=== PATIENT | male | born 1960 | race Two or more races ===

== ENCOUNTER 2022-04-05 20:32 | Inpatient (IN) | payer OTHER ==
[~2022-04-05] VITALS: Ht 175.3 cm; Wt 94.8 kg
--- NOTE | 2022-04-05 20:40 | NUR ---
R BKA, LEFT PARTIAL FOOT APUTATION NOTED.
--- NOTE | 2022-04-05 20:40 | NUR ---
DONNA FROM [facility] FOR SOB SINCE 199. PT A/OX4. TOLERATING O2 2LPM VIA N/C AT 98%. CONNECTED PT TO POX AND MONITOR. SAFETY MEASURES IN PLACE.
--- NOTE | 2022-04-05 21:04 | NUR ---
LAC #18G S/L BLOOD COLLECTED AND SENT TO LAB
[2022-04-05 21:13] LABS: BASOPHILS # (AUTO) 0.1 K/uL (0.0-0.2); BASOPHILS % (AUTO) 1.4 % (0.0-2.0); EOSINOPHILS % (AUTO) 4.7 % (0.0-6.0); HEMATOCRIT 31 % (39-51); HEMOGLOBIN 9.9 g/dL (13.5-17.5); LYMPHOCYTES # (AUTO) 0.7 K/uL (0.8-4.8); LYMPHOCYTES % (AUTO) 8.1 % (20.0-44.0); MEAN CORPUSCULAR HGB CONC 32 g/dl (31.0-36.0); MEAN CORPUSCULAR VOLUME 89 fL (80-96); MONOCYTES # (AUTO) 0.9 K/uL (0.1-1.30); NEUTROPHILS # (AUTO) 6.6 K/uL (1.8-8.9); NEUTROPHILS % (AUTO) 75.8 % (43.0-81.0); PLATELET COUNT (AUTO) 365 K/uL (150-450); RED BLOOD CELL COUNT(AUTO) 3.52 MIL/uL (4.5-6.0); WHITE BLOOD COUNT (AUTO) 8.6 K/uL (4.3-11.0)
[2022-04-05 21:32] LABS: CALCIUM, SERUM 7.8 mg/dL (8.5-10.1); CARBON DIOXIDE 23 mmol/L (21-32); CHLORIDE 104 mmol/L (98-107); GLUCOSE 116 mg/dL (74-106); POTASSIUM 5.5 mmol/L (3.5-5.1); SODIUM SERUM 140 mmol/L (136-145); UREA NITROGEN, BLOOD 69 mg/dL (7-18)
--- NOTE | 2022-04-05 21:32 | NUR ---
DR. LAW CORTEZ AT PT'S BEDSIDE FOR EVAL
[2022-04-05 21:37] LABS: CREATININE 14.1 mg/dL (0.6-1.3)
--- NOTE | 2022-04-05 21:37 | NUR ---
PENNY 14.1MD AWARE
[2022-04-05 21:39] LABS: ALANINE AMINOTRANSFERASE 20 U/L (12-78); ALBUMIN 3.4 g/dL (3.4-5.0); ALKALINE PHOSPHATASE 119 U/L (46-116); ASPARTATE AMINOTRANSFERASE 22 U/L (15-37); BILIRUBIN,DIRECT 0.2 mg/dL (0.0-0.2); BILIRUBIN,TOTAL 0.9 mg/dL (0.2-1.0); TOTAL PROTEIN, SERUM 7.4 g/dL (6.4-8.2)
[2022-04-05] MEDS ORDERED: LORAZEPAM INJ 2 MG/ML VIAL ONE (21:40)
--- NOTE | 2022-04-05 21:52 | NUR ---
COVID ANTIGEN SWAB COLLECTED AND SENT TO LAB
[2022-04-05] MEDS ORDERED: LORAZEPAM INJ 2 MG/ML VIAL IV ONE (22:00)
[2022-04-05] MEDS ORDERED: FUROSEMIDE 40 MG/4 ML VIAL IV ONE (22:00)
[2022-04-05] MEDS ORDERED: CALCIUM CHLORIDE 1,000 MG/10 ML DISP.SYRIN IV ONE (22:00)
--- NOTE | 2022-04-05 22:17 | NUR ---
KELTON CHAPARRO DNP AT PT'S BEDSIDE FOR VALERIEAL
[2022-04-05] MEDS ORDERED: ACETAMINOPHEN 325 MG TABLET PO PRN (22:30)
[2022-04-05] MEDS ORDERED: ONDANSETRON HCL/PF 4 MG/2 ML VIAL IVP PRN (22:30)
[2022-04-05] MEDS ORDERED: Z GUARD REMEDY 4 OZ OINT TP PRN (22:30)
[2022-04-05] MEDS ORDERED: MORPHINE SULFATE INJ 2 MG/ML DISP.SYRIN IV PRN (22:30)
[2022-04-05] MEDS ORDERED: MAG HYDROX/AL HYDROX/SIMETH 30 ML UDC PO PRN (22:30)
[2022-04-05] MEDS ORDERED: HYDROCODONE/APAP 5/325MG TABLET PO PRN (22:30)
[2022-04-05] MEDS ORDERED: MAGNESIUM HYDROXIDE 30 ML UDC PO PRN (22:30)
[2022-04-05] MEDS ORDERED: HYDR-4076 MT (22:45)
[2022-04-05] MEDS ORDERED: AMLO-213 MT (22:45)
[2022-04-05] MEDS ORDERED: CLON0.1T MT (22:45)
[2022-04-05] MEDS ORDERED: LABE200T5 MT (22:45)
[2022-04-05] MEDS ORDERED: DEXTROSE 50%-WATER 50 ML DISP.SYRIN IV PRN (23:00)
--- NOTE | 2022-04-06 | NUR ---
REPORT GIVEN TO KENDAL MONSON RN FOR JONATHON
--- NOTE | 2022-04-06 00:40 | NUR ---
PT TRANSFERRED TO [facility] VIA ACLS PROTOCOL. VSS. ALL BELONGINGS WITH PT.
--- NOTE | 2022-04-06 01:00 | NUR ---
PROJECTION CAMERA OPERATOR NOTE RECEIVED PT VIA GURNEY FROM ER WITH THE DX OF ARF, SECONDARY DX HYPERKALEMIA. PT WAS AWAKE, A/O X 4, ABLE TO VERBALIZE NEEDS. ON NC @ 4L, TOLERATING WELL. NO S/SX OF ACUTE RESPI DISTRESS NOTED. PT SHOWING SOB, BUT DENIES PAIN. IV ACCESS IN LAC #18G, PATENT, INTACT AND FLUSHES WELL, SL ONLY. PT HAS BLE AMPUTATION WITH R KNEE STUMP AND L FOOT STUMP PRESENT. SKIN INTACT EXCEPT FOR SOME SCRATCHES ON HIS R AND L LEG. PHOTOS TAKEN AND PLACED IN CHART. ALL SAFETY MEASURES IN PLACE: BED LOCKED IN LOW POSITION, BED ALARM ON. SR UP 2. CALL LIGHT WITHIN REACH. WILL CONTINUE TO MONITOR.
[2022-04-06 04:00] VITALS: BP 174/99
[2022-04-06] MEDS: hydrALAZINE HCL IV 20 MG VIAL IV PRN (06:20)
[2022-04-06] MEDS ORDERED: hydrALAZINE HCL IV 20 MG VIAL IV PRN (06:30)
--- NOTE | 2022-04-06 07:20 | NUR ---
rn telephone triage opening note PT AWAKE, A/O X 4, ABLE TO VERBALIZE NEEDS. ON NC @ 6L, TOLERATING WELL. NO S/SX OF ACUTE RESPI DISTRESS NOTED. PT SHOWING SOB, BUT DENIES PAIN/DISCOMFORT AT THIS TIME. IV ACCESS IN LAC #18G, PATENT, INTACT AND FLUSHES WELL, SL. PT HAS BLE AMPUTATION WITH R KNEE STUMP AND L FOOT STUMP PRESENTALL SAFETY MEASURES IN PLACE: BED LOCKED IN LOW POSITION, BED ALARM ON. SR UP 2. CALL LIGHT WITHIN REACH. EDUCATED PT TO USE CALL LIGHT WHEN NEEDS ANY ASSISTANCE.
[2022-04-06 07:27] LABS: BASOPHILS # (AUTO) 0.1 K/uL (0.0-0.2); BASOPHILS % (AUTO) 1.3 % (0.0-2.0); EOSINOPHILS % (AUTO) 7.6 % (0.0-6.0); HEMATOCRIT 30 % (39-51); HEMOGLOBIN 9.6 g/dL (13.5-17.5); LYMPHOCYTES # (AUTO) 0.8 K/uL (0.8-4.8); LYMPHOCYTES % (AUTO) 9.9 % (20.0-44.0); MEAN CORPUSCULAR HGB CONC 32 g/dl (31.0-36.0); MEAN CORPUSCULAR VOLUME 89 fL (80-96); MONOCYTES # (AUTO) 0.8 K/uL (0.1-1.30); NEUTROPHILS # (AUTO) 5.7 K/uL (1.8-8.9); NEUTROPHILS % (AUTO) 71.2 % (43.0-81.0); PLATELET COUNT (AUTO) 368 K/uL (150-450); RED BLOOD CELL COUNT(AUTO) 3.36 MIL/uL (4.5-6.0); WHITE BLOOD COUNT (AUTO) 7.9 K/uL (4.3-11.0)
[2022-04-06 07:29] LABS: MAGNESIUM 2.5 mg/dL (1.8-2.4); PHOSPHORUS 6.7 mg/dL (2.5-4.9)
[2022-04-06 07:32] LABS: CREATININE 14.4 mg/dL (0.6-1.3)
[2022-04-06] MEDS: BLOOD SUGAR DIAGNOSTIC 1 EACH STRIP IN SCH ×4 (07:44→22:22)
[2022-04-06] MEDS: PANTOPRAZOLE 40 MG TABLET.DR PO SCH (07:49)
[2022-04-06 08:00] VITALS: BP 159/82
[2022-04-06] MEDS: LABETALOL HCL (100MG) 100 MG TABLET PO SCH ×2 (08:58→22:01)
[2022-04-06] MEDS: AMLODIPINE BESYLATE 10 MG TABLET PO SCH (08:58)
[2022-04-06] MEDS ORDERED: FUROSEMIDE 40 MG/4 ML VIAL IV SCH (09:00)
[2022-04-06] MEDS: HEPARIN SODIUM, PORCINE 5000 UNITS/1 ML VIAL SQ SCH ×2 (09:36→22:08)
--- NOTE | 2022-04-06 10:00 | NUR ---
rn note pt asked to have wheelchair at bedside. notified pt eval. educated pt that PT has to see evaluate patient. educated him that hospital doesnt provide wheelchairs.
[2022-04-06] MEDS: hydrALAZINE HCL 25 MG TABLET PO SCH ×3 (10:04→17:21)
[2022-04-06 12:00] VITALS: BP 130/82
[2022-04-06] MEDS ORDERED: FUROSEMIDE 100 MG/10 ML VIAL IV ONE ×2 (14:00→19:30)
--- NOTE | 2022-04-06 14:24 | NUR ---
rn note received verbal order from Dr. Zamorano to give Lasix 100 mg now. orders noted and carried out
[2022-04-06 16:00] VITALS: BP 142/74
--- NOTE | 2022-04-06 19:52 | NUR ---
rn note notified dr. cuadra that Lasix 100 mgIV was given at 1400, and there is new order to give another 100 mg lasix to be given now. notified him for clarification. endorsed to cage shift manager rn
--- NOTE | 2022-04-06 19:56 | NUR ---
telephone lines repairer closing note PT AWAKE, A/O X 4, ABLE TO VERBALIZE NEEDS. ON simple face mask @ 6-8L, TOLERATING WELL. NO S/SX OF ACUTE RESPI DISTRESS NOTED. PT SHOWING SOB, BUT DENIES PAIN/DISCOMFORT AT THIS TIME. IV ACCESS IN LAC #18G, PATENT, INTACT AND FLUSHES WELL, SL. PT HAS BLE AMPUTATION WITH R KNEE STUMP AND L FOOT STUMP PRESENT. ALL SAFETY MEASURES IN PLACE: BED LOCKED IN LOW POSITION, BED ALARM ON. SR UP 2. CALL LIGHT WITHIN REACH. EDUCATED PT TO USE CALL LIGHT WHEN NEEDS ANY ASSISTANCE.
[2022-04-06 20:00] VITALS: BP 153/87
--- NOTE | 2022-04-06 20:00 | NUR ---
TD rn opening note PTS IN BED AWAKE, A/O X 4, ABLE TO VERBALIZE NEEDS. ON SIMPLE MASK @ 6L, TOLERATING WELL. NO S/SX OF ACUTE RESPI DISTRESS NOTED. DENIES PAIN/DISCOMFORT AT THIS TIME. IV ACCESS IN LEFT HAND #22G, PATENT, INTACT AND FLUSHES WELL, SL. PT HAS BLE AMPUTATION WITH R KNEE STUMP AND L FOOT STUMP DUE MEDS GIVEN ORDERED NO ASE NOTED,ALL SAFETY MEASURES IN PLACE: BED LOCKED IN LOW POSITION, BED ALARM ON. SR UP X2. CALL LIGHT WITHIN REACH. EDUCATED PT TO USE CALL LIGHT WHEN NEEDS ANY ASSISTANCE.
[2022-04-06] MEDS: INSULIN REGULAR, HUMAN 100 UNIT/ML 3 ML VIAL SQ PRN (22:26)
--- NOTE | 2022-04-06 22:27 | NUR ---
jalen rn notes Blood sugar at 10pm is 102mg/dl no insulin coverage given per sliding scale.
--- NOTE | 2022-04-06 23:13 | NUR ---
TD RN NOTES S/P IJ HD ACCESS INSERTED BY DIANE DUNNE NO BLEEDING NOTED ON THE SITE.WILL CONTINUE TO MONITOR.
[2022-04-07] VITALS: BP 148/93
--- NOTE | 2022-04-07 02:07 | NUR ---
TD RN NOTES HEMODIALYSIS DONE BY JAKY VAZQUEZ , X2 HOURS WITH OUTPUT OF 500CC .WELL TOLERATED BY PTS.
[2022-04-07 04:00] VITALS: BP_SYST 159; BP_SYST 162; BP_DIAS 83
--- NOTE | 2022-04-07 05:44 | NUR ---
TD RN NOTES PTS REMAINS IN bed awake a/ox4 remain on monitor sr , no sob no distress noted no complain of pain , on l eft hand G22 and right ij hd access intact and patent ,will endorsed to rn day shift for continuity of care.
[2022-04-07 07:29] LABS: BASOPHILS # (AUTO) 0.1 K/uL (0.0-0.2); BASOPHILS % (AUTO) 1.5 % (0.0-2.0); EOSINOPHILS % (AUTO) 11.6 % (0.0-6.0); HEMATOCRIT 30 % (39-51); LYMPHOCYTES # (AUTO) 0.7 K/uL (0.8-4.8); LYMPHOCYTES % (AUTO) 10.5 % (20.0-44.0); MEAN CORPUSCULAR HGB CONC 33 g/dl (31.0-36.0); MEAN CORPUSCULAR VOLUME 89 fL (80-96); MONOCYTES # (AUTO) 0.9 K/uL (0.1-1.30); MONOCYTES % (AUTO) 12.5 % (2.0-12.0); NEUTROPHILS # (AUTO) 4.4 K/uL (1.8-8.9); NEUTROPHILS % (AUTO) 63.9 % (43.0-81.0); PLATELET COUNT (AUTO) 300 K/uL (150-450); WHITE BLOOD COUNT (AUTO) 6.9 K/uL (4.3-11.0)
[2022-04-07 08:00] VITALS: BP 161/81
[2022-04-07 08:20] LABS: CALCIUM, SERUM 7.6 mg/dL (8.5-10.1); POTASSIUM 4.4 mmol/L (3.5-5.1)
[2022-04-07 08:26] LABS: CREATININE 12.2 mg/dL (0.6-1.3)
[2022-04-07] MEDS: BLOOD SUGAR DIAGNOSTIC 1 EACH STRIP IN SCH ×4 (08:34→21:39)
[2022-04-07] MEDS: FUROSEMIDE 100 MG/10 ML VIAL IV SCH ×2 (08:41→19:59)
[2022-04-07] MEDS: HEPARIN SODIUM, PORCINE 5000 UNITS/1 ML VIAL SQ SCH ×2 (08:42→21:39)
[2022-04-07] MEDS: LABETALOL HCL (100MG) 100 MG TABLET PO SCH ×2 (08:42→21:38)
[2022-04-07] MEDS: CALCIUM ACETATE 667 MG CAP/TAB PO SCH ×3 (08:42→19:59)
[2022-04-07] MEDS: hydrALAZINE HCL 25 MG TABLET PO SCH ×3 (08:43→19:59)
[2022-04-07] MEDS: PANTOPRAZOLE 40 MG TABLET.DR PO SCH (08:43)
[2022-04-07] MEDS: AMLODIPINE BESYLATE 10 MG TABLET PO SCH (08:43)
[2022-04-07] MEDS: INSULIN REGULAR, HUMAN 100 UNIT/ML 3 ML VIAL SQ PRN ×2 (09:10→12:53)
[2022-04-07 12:00] VITALS: BP 158/97
--- NOTE | 2022-04-07 15:15 | NUR ---
RN NOTE DIALYSIS WILL BEGIN AT THIS TIME.
[2022-04-07 16:00] VITALS: BP 142/88
--- NOTE | 2022-04-07 17:54 | NUR ---
RN NOTE DIALYSIS REMOVED 1.5L TODAY.
--- NOTE | 2022-04-07 18:33 | NUR ---
RN NOTE NOTIFIED NURSING AUTOMOTIVE FUEL INJECTION SERVICER THAT PATIENT REQUESTED TO CHANGE ROOMS, HE REQUESTED MORE PRIVACY. MOVED PATIENT TO ROOM 104. DIALYSIS NURSE NOTIFIED PRIMARY NURSE THAT, ROOM 104, DOES NOT HAVE DIALYSIS ACCESS TO PERFORM DIALYSIS, PATIENT WAS MOVED BACK TO ROOM 113-1. NOTIFIED DR BRENDAN MD AWARE. CHARGE NURSE AWARE.
[2022-04-07 20:00] VITALS: BP 169/94
--- NOTE | 2022-04-07 20:21 | NUR ---
BIOMEDICAL TECHNICIAN CLOSING NOTE PT AWAKE, A/O X 4, ABLE TO VERBALIZE NEEDS. BREATHING ON 6L NC, TOLERATING WELL. NO S/SX OF ACUTE RESPI DISTRESS NOTED. IV ACCESS IN BISMARK MIDLINE #18G, PATENT, INTACT AND FLUSHES WELL, SL. PT HAS BLE AMPUTATION WITH R KNEE STUMP AND L FOOT STUMP PRESENT. ALL SAFETY MEASURES IN PLACE: BED LOCKED IN LOW POSITION, BED ALARM ON. SR UP 2. CALL LIGHT WITHIN REACH. EDUCATED PT TO USE CALL LIGHT WHEN NEEDS ANY ASSISTANCE. WILL ENDORSE CONTINUITY OF CARE TO CLINICAL TRIALS ASSISTANT.
[2022-04-08] VITALS: BP 174/84
[2022-04-08] MEDS: hydrALAZINE HCL IV 20 MG VIAL IV PRN (02:06)
[2022-04-08 04:00] VITALS: BP 115/75
[2022-04-08 06:43] LABS: BASOPHILS # (AUTO) 0.1 K/uL (0.0-0.2); BASOPHILS % (AUTO) 1.3 % (0.0-2.0); EOSINOPHILS % (AUTO) 10.8 % (0.0-6.0); HEMATOCRIT 30 % (39-51); HEMOGLOBIN 9.7 g/dL (13.5-17.5); LYMPHOCYTES # (AUTO) 0.6 K/uL (0.8-4.8); LYMPHOCYTES % (AUTO) 9.7 % (20.0-44.0); MEAN CORPUSCULAR HGB CONC 32 g/dl (31.0-36.0); MEAN CORPUSCULAR VOLUME 88 fL (80-96); MONOCYTES # (AUTO) 0.7 K/uL (0.1-1.30); MONOCYTES % (AUTO) 10.2 % (2.0-12.0); NEUTROPHILS # (AUTO) 4.5 K/uL (1.8-8.9); PLATELET COUNT (AUTO) 259 K/uL (150-450); WHITE BLOOD COUNT (AUTO) 6.6 K/uL (4.3-11.0)
[2022-04-08 07:30] LABS: CALCIUM, SERUM 7.8 mg/dL (8.5-10.1); MAGNESIUM 2.3 mg/dL (1.8-2.4); PHOSPHORUS 5.5 mg/dL (2.5-4.9); POTASSIUM 4.1 mmol/L (3.5-5.1)
[2022-04-08 07:36] LABS: CREATININE 10.9 mg/dL (0.6-1.3)
[2022-04-08 08:00] VITALS: BP 154/82
[2022-04-08] MEDS: BLOOD SUGAR DIAGNOSTIC 1 EACH STRIP IN SCH ×4 (09:16→21:25)
[2022-04-08] MEDS: CALCIUM ACETATE 667 MG CAP/TAB PO SCH ×3 (09:26→17:17)
[2022-04-08] MEDS: PANTOPRAZOLE 40 MG TABLET.DR PO SCH (09:26)
[2022-04-08] MEDS: AMLODIPINE BESYLATE 10 MG TABLET PO SCH (09:27)
[2022-04-08] MEDS: hydrALAZINE HCL 25 MG TABLET PO SCH ×3 (09:27→17:17)
[2022-04-08] MEDS: FUROSEMIDE 100 MG/10 ML VIAL IV SCH ×2 (09:27→17:17)
[2022-04-08] MEDS: LABETALOL HCL (100MG) 100 MG TABLET PO SCH ×2 (09:28→21:15)
[2022-04-08] MEDS: HEPARIN SODIUM, PORCINE 5000 UNITS/1 ML VIAL SQ SCH ×2 (09:30→21:16)
[2022-04-08 12:00] VITALS: BP 137/83
--- NOTE | 2022-04-08 15:23 | NUR ---
RN NOTE HEMODIALYSIS WILL BEGIN AT THIS TIME.
[2022-04-08 16:00] VITALS: BP 159/98
--- NOTE | 2022-04-08 19:12 | NUR ---
FLORAL CLERK CLOSING NOTE HEMODIALYSIS PERFORMED TODAY, REMOVED 1L. PT AWAKE, A/O X 4, ABLE TO VERBALIZE NEEDS. BREATHING ON 6L NC, TOLERATING WELL. NO S/SX OF ACUTE RESPI DISTRESS NOTED. IV ACCESS IN BISMARK MIDLINE #18G, PATENT, INTACT AND FLUSHES WELL, SL. PT HAS BLE AMPUTATION WITH R KNEE STUMP AND L FOOT STUMP PRESENT. ALL SAFETY MEASURES IN PLACE: BED LOCKED IN LOW POSITION, BED ALARM ON. SR UP 2. CALL LIGHT WITHIN REACH. EDUCATED PT TO USE CALL LIGHT WHEN NEEDS ANY ASSISTANCE. WILL ENDORSE CONTINUITY OF CARE TO BIOINFORMATICIAN.
--- NOTE | 2022-04-08 19:18 | NUR ---
RN NOTE RECEIVED PT FOR CONTINUITY OF CARE. PATIENT ON HIS WHEELCHAIR, A/OX4 IN NO S/SX OF ACUTE DISTRESS AT THIS TIME; CURRENTLY ON 6L OF 02 VIA NC; WITH 02 SAT 95% AT THIS TIME. WITH IV ACCESS R UA MIDLINE PATENT, INTACT AND FLUSHING WELL. WILL ENSURE SAFETY MEASURES WITHIN THE SHIFT. PATIENT BED ALARM IS ON. HEAD OF BED ELEVATED. BED IS LOCKED, IN LOWEST POSITION AND SIDE RAILS UP. CALL LIGHT WITHIN REACH OF THE PATIENT. WILL CONTINUE TO MONITOR AND REASSESS FOR ANY CHANGES AND WILL CARRY OUT ANY ONGOING AND ACTIVE MD ORDER.
[2022-04-08 20:00] VITALS: BP 96/46
--- NOTE | 2022-04-08 21:26 | NUR ---
RN NOTE PT REFUSED ACCU CHECK, EXPLAINED RISK AND BENEFITS BUT PERSISTENTLY REFUSING. RN ACKNOWLEDGED. HOUSEKEEPING ASSISTANT MADE AWARE.
[2022-04-09] VITALS: BP 126/68
[2022-04-09 04:00] VITALS: BP 124/55
--- NOTE | 2022-04-09 04:00 | NUR ---
RN NOTE PATIENT REMAINED TO BE IN NO SIGNS OF ACUTE RESPIRATORY DISTRESS ,SAFE ENVIRONMENT MAINTAINED FOR PT. WILL CONTINUE TO MONITOR AND REASSESS FOR ANY CHANGES THROUGHOUT THE SHIFT.
--- NOTE | 2022-04-09 06:43 | NUR ---
RN CLOSING NOTE PATIENT REMAINS IN ROOM IN NO SIGNS OF RESPIRATORY DISTRESS, PATIENT NOW ON 4L OF 02 VIA NC; TOLERATING WELL SATURATING @ >95% SP02. SAFETY MEASURES IMPLEMENTED, BED IN LOWEST POSITION, LOCKED, SIDE RAILS UP, CALL LIGHT WITHIN REACH. ALL NEEDS AND ORDERS ADDRESSED DURING THE SHIFT. IV ACCESS MAINTAINED INTACT, SECURED AND FLUSHING WELL. ALL DUE MEDS GIVEN ORDERED & SCHEDULED ; PATIENT TOLERATED WELL. PATIENT KEPT CLEAN AND COMFORTABLE WITHIN THE SHIFT. PATIENT ENDORSED TO INCOMING SHIFT RN WITH STABLE VITAL SIGN AND FOR CONTINUITY OF CARE.
--- NOTE | 2022-04-09 07:10 | NUR ---
RAW SAMPLER OPENING NOTES Received pt awake and in his wheelchair AOx4. No complaints of pain or discomfort at this time. Pt is currently on 4L NC and tolerating it well. IV access on BIMSARK midline patent and intact, RIJ PermCath for HD access. Call light within reach. Will continue to monitor.
[2022-04-09] MEDS: BLOOD SUGAR DIAGNOSTIC 1 EACH STRIP IN SCH (07:30)
[2022-04-09 07:42] LABS: BASOPHILS # (AUTO) 0.1 K/uL (0.0-0.2); BASOPHILS % (AUTO) 1.5 % (0.0-2.0); EOSINOPHILS % (AUTO) 10.4 % (0.0-6.0); HEMATOCRIT 32 % (39-51); HEMOGLOBIN 10.4 g/dL (13.5-17.5); LYMPHOCYTES # (AUTO) 0.6 K/uL (0.8-4.8); LYMPHOCYTES % (AUTO) 9.8 % (20.0-44.0); MEAN CORPUSCULAR HGB CONC 32 g/dl (31.0-36.0); MEAN CORPUSCULAR VOLUME 87 fL (80-96); MONOCYTES # (AUTO) 0.6 K/uL (0.1-1.30); MONOCYTES % (AUTO) 9.8 % (2.0-12.0); NEUTROPHILS # (AUTO) 4.3 K/uL (1.8-8.9); NEUTROPHILS % (AUTO) 68.5 % (43.0-81.0); PLATELET COUNT (AUTO) 244 K/uL (150-450); RED BLOOD CELL COUNT(AUTO) 3.68 MIL/uL (4.5-6.0); WHITE BLOOD COUNT (AUTO) 6.3 K/uL (4.3-11.0)
--- NOTE | 2022-04-09 07:44 | NUR ---
BUSINESS INTELLIGENCE MANAGER NOTES Pt refused to get his blood sugar checked. Offered 3x but pt still refused. Explained risks and benefits. Pt stated "I'm not diabetic. Tell the doctor I don't need to get my blood sugar checked."
[2022-04-09 08:00] VITALS: BP 159/98
[2022-04-09 08:09] LABS: POTASSIUM 4.1 mmol/L (3.5-5.1)
[2022-04-09 08:17] LABS: CREATININE 10.3 mg/dL (0.6-1.3)
[2022-04-09] MEDS: AMLODIPINE BESYLATE 10 MG TABLET PO SCH ×2 (08:58→09:00)
[2022-04-09] MEDS: CALCIUM ACETATE 667 MG CAP/TAB PO SCH ×3 (08:58→17:44)
[2022-04-09] MEDS: PANTOPRAZOLE 40 MG TABLET.DR PO SCH (08:58)
[2022-04-09] MEDS: hydrALAZINE HCL 25 MG TABLET PO SCH ×3 (08:59→17:44)
[2022-04-09] MEDS: LABETALOL HCL (100MG) 100 MG TABLET PO SCH ×3 (08:59→21:04)
[2022-04-09 09:02] LABS: ABG BASE EXCESS -1.4 mmol/L; ABG OXYGEN SATURATION 96.2 % (92.0-98.5); ABG PCO2 34.4 mmHg (35.0-45.0); ABG PH 7.431 (7.350-7.450); ABG PO2 81.4 mmHg (75.0-100.0); AaDO2 27.1 mmHg; COHb 0.6 % (0.5-1.5); MetHb 0.2 % (0.0-1.5); O2Hb 95.4 % (94.0-97.0); SITE, ABG Left Brachial; VENT MODE, BG ROOM AIR
[2022-04-09] MEDS: HEPARIN SODIUM, PORCINE 5000 UNITS/1 ML VIAL SQ SCH ×2 (09:05→21:06)
[2022-04-09] MEDS: FUROSEMIDE 100 MG/10 ML VIAL IV SCH ×2 (09:12→17:45)
[2022-04-09 12:00] VITALS: BP 166/96
[2022-04-09 16:00] VITALS: BP 169/92
--- NOTE | 2022-04-09 17:52 | NUR ---
HEAD GREENSKEEPER NOTES Pt completed HD and tolerated it well. 2L of fluid removed.
--- NOTE | 2022-04-09 18:37 | NUR ---
MINER CLOSING NOTES All due meds and tx given as ordered. Pt tolerated everything well. All needs attended to. Pt is currently on 4L NC and tolerating it well with 02 saturatoin at 96%. IV access on BISMARK midline patent and intact. RIJ permacath kept clean and dry. Pt is on his wheelchair. Call light within reach. Will endorse to oncoming nurse.
--- NOTE | 2022-04-09 19:10 | NUR ---
RN NOTE RECEIVED PT FOR CONTINUITY OF CARE. PATIENT ON HIS WHEELCHAIR, A/OX4 IN NO S/SX OF ACUTE DISTRESS AT THIS TIME; CURRENTLY ON 4L OF 02 VIA NC; WITH 02 SAT 95% AT THIS TIME. WITH IV ACCESS R UA MIDLINE PATENT, INTACT AND FLUSHING WELL. WILL ENSURE SAFETY MEASURES WITHIN THE SHIFT. PATIENT BED ALARM IS ON. HEAD OF BED ELEVATED. BED IS LOCKED, IN LOWEST POSITION AND SIDE RAILS UP. CALL LIGHT WITHIN REACH OF THE PATIENT. WILL CONTINUE TO MONITOR AND REASSESS FOR ANY CHANGES AND WILL CARRY OUT ANY ONGOING AND ACTIVE MD ORDER.
[2022-04-09 20:00] VITALS: BP 148/90
[2022-04-10 04:00] VITALS: BP 135/72
--- NOTE | 2022-04-10 06:39 | NUR ---
RN CLOSING NOTE PATIENT REMAINS IN ROOM IN NO SIGNS OF RESPIRATORY DISTRESS, PATIENT NOW ON 2L OF 02 VIA NC; TOLERATING WELL SATURATING @ >95% SP02. SAFETY MEASURES IMPLEMENTED, BED IN LOWEST POSITION, LOCKED, SIDE RAILS UP, CALL LIGHT WITHIN REACH. ALL NEEDS AND ORDERS ADDRESSED DURING THE SHIFT. IV ACCESS MAINTAINED INTACT, SECURED AND FLUSHING WELL. ALL DUE MEDS GIVEN ORDERED & SCHEDULED ; PATIENT TOLERATED WELL. PATIENT KEPT CLEAN AND COMFORTABLE WITHIN THE SHIFT. PATIENT ENDORSED TO INCOMING SHIFT RN WITH STABLE VITAL SIGN AND FOR CONTINUITY OF CARE.
[2022-04-10 06:55] LABS: BASOPHILS # (AUTO) 0.1 K/uL (0.0-0.2); BASOPHILS % (AUTO) 1.5 % (0.0-2.0); EOSINOPHILS % (AUTO) 12.2 % (0.0-6.0); HEMATOCRIT 31 % (39-51); LYMPHOCYTES # (AUTO) 0.6 K/uL (0.8-4.8); LYMPHOCYTES % (AUTO) 9.1 % (20.0-44.0); MEAN CORPUSCULAR HGB CONC 33 g/dl (31.0-36.0); MEAN CORPUSCULAR VOLUME 87 fL (80-96); MONOCYTES # (AUTO) 0.8 K/uL (0.1-1.30); MONOCYTES % (AUTO) 11.9 % (2.0-12.0); NEUTROPHILS # (AUTO) 4.3 K/uL (1.8-8.9); NEUTROPHILS % (AUTO) 65.3 % (43.0-81.0); PLATELET COUNT (AUTO) 180 K/uL (150-450); RED BLOOD CELL COUNT(AUTO) 3.52 MIL/uL (4.5-6.0); WHITE BLOOD COUNT (AUTO) 6.6 K/uL (4.3-11.0)
--- NOTE | 2022-04-10 07:09 | NUR ---
AGRICULTURAL SYSTEMS SPECIALIST OPENING NOTES Received pt sleep in bed AOx4. No signs of pain or discomfort at this time. Pt is currently on 4L NC and tolerating it well. IV access on BISMARK midline patent and intact, RIJ PermCath for HD access. HOB elevated to 30-45 degrees. Bed at its lowest setting and locked. Call light within reach. Will continue to monitor.
[2022-04-10 07:11] LABS: CALCIUM, SERUM 8.1 mg/dL (8.5-10.1); POTASSIUM 4.1 mmol/L (3.5-5.1)
[2022-04-10 08:00] VITALS: BP 146/52
[2022-04-10] MEDS: PANTOPRAZOLE 40 MG TABLET.DR PO SCH (08:05)
[2022-04-10] MEDS: CALCIUM ACETATE 667 MG CAP/TAB PO SCH ×3 (08:05→17:01)
[2022-04-10] MEDS: AMLODIPINE BESYLATE 10 MG TABLET PO SCH (09:10)
[2022-04-10] MEDS: hydrALAZINE HCL 25 MG TABLET PO SCH ×3 (09:10→17:02)
[2022-04-10] MEDS: LABETALOL HCL (100MG) 100 MG TABLET PO SCH ×2 (09:11→21:00)
[2022-04-10] MEDS: HEPARIN SODIUM, PORCINE 5000 UNITS/1 ML VIAL SQ SCH ×3 (09:14→23:50)
[2022-04-10] MEDS: FUROSEMIDE 100 MG/10 ML VIAL IV SCH ×2 (09:18→16:57)
[2022-04-10 12:00] VITALS: BP 153/84
[2022-04-10] MEDS: IPRATROPIUM NEB FS 0.5 MG/2.5 ML AMPUL.NEB NEB PRN (14:33)
[2022-04-10 16:00] VITALS: BP 144/72
--- NOTE | 2022-04-10 18:35 | NUR ---
LAST DIPPER CLOSING NOTES All due meds and tx given as ordered. Pt tolerated everything well. All needs attended to. Pt is currently on 4L NC and tolerating it well. IV access on BISMARK midline patent and intact. Call light within reach. Will endorse to oncoming nurse.
[2022-04-10 20:00] VITALS: BP 165/90
[2022-04-10 22:00] VITALS: BP 140/70
[2022-04-11 04:00] VITALS: BP 105/52
--- NOTE | 2022-04-11 06:30 | NUR ---
Client slept off and on thru out night . Denies H/A ,dizziness and blurred vision. Denies pain at this time. offered no complaints. made comfortable.Advised client to make nurse aware if any untoward manifestations occurs. Client voiced understanding of same. will cont to monitor for safety.
[2022-04-11 07:57] LABS: BASOPHILS # (AUTO) 0.1 K/uL (0.0-0.2); BASOPHILS % (AUTO) 1.4 % (0.0-2.0); HEMATOCRIT 32 % (39-51); LYMPHOCYTES # (AUTO) 0.8 K/uL (0.8-4.8); MEAN CORPUSCULAR HGB CONC 32 g/dl (31.0-36.0); MEAN CORPUSCULAR VOLUME 89 fL (80-96); MONOCYTES # (AUTO) 0.8 K/uL (0.1-1.30); MONOCYTES % (AUTO) 12.6 % (2.0-12.0); PLATELET COUNT (AUTO) 150 K/uL (150-450); RED BLOOD CELL COUNT(AUTO) 3.55 MIL/uL (4.5-6.0); WHITE BLOOD COUNT (AUTO) 6.4 K/uL (4.3-11.0)
--- NOTE | 2022-04-11 07:57 | NUR ---
RN OPENING NOTE PATIENT REMAINS IN ROOM. PT ALERT AND ORIENTED X 4. VERBALLY RESPONSIVE AND ABLE TO MAKE NEEDS KNOWN. NO SIGNS OF PAIN OF DISCOMFORT AT THIS TIME. ON 2L OF VIA NC; TOLERATING WELL SATURATING @ >95% SP02. ALL SAFETY MEASURES IMPLEMENTED, BED IN LOWEST POSITION, LOCKED, SIDE RAILS UP, CALL LIGHT WITHIN REACH. IV ACCESS MAINTAINED INTACT, SECURED AND FLUSHING WELL.
[2022-04-11 07:59] LABS: CALCIUM, SERUM 7.8 mg/dL (8.5-10.1); CREATININE 7.3 mg/dL (0.6-1.3); MAGNESIUM 2.1 mg/dL (1.8-2.4); PHOSPHORUS 3.8 mg/dL (2.5-4.9); POTASSIUM 3.9 mmol/L (3.5-5.1)
[2022-04-11 08:00] VITALS: BP 151/83
[2022-04-11] MEDS: FUROSEMIDE 100 MG/10 ML VIAL IV SCH ×2 (08:36→16:28)
[2022-04-11] MEDS: PANTOPRAZOLE 40 MG TABLET.DR PO SCH (08:36)
[2022-04-11] MEDS: CALCIUM ACETATE 667 MG CAP/TAB PO SCH ×3 (08:36→17:17)
[2022-04-11] MEDS: hydrALAZINE HCL 25 MG TABLET PO SCH ×3 (08:36→16:29)
[2022-04-11] MEDS: LABETALOL HCL (100MG) 100 MG TABLET PO SCH ×2 (08:38→21:34)
[2022-04-11] MEDS: AMLODIPINE BESYLATE 10 MG TABLET PO SCH (08:38)
--- NOTE | 2022-04-11 08:39 | NUR ---
rn note notified instruction librarian troy that platelets is 150 and platelets trending down and if okay to give heparin. said ok to give. pt no signs of bleeding
--- NOTE | 2022-04-11 08:39 | NUR ---
rn note pt scheduled for dialysis. held 0900 blood pressure medications
[2022-04-11] MEDS: HEPARIN SODIUM, PORCINE 5000 UNITS/1 ML VIAL SQ SCH ×2 (08:43→21:30)
--- NOTE | 2022-04-11 13:36 | NUR ---
rn note platelet refused 1200 vital signs. hydrazaline held due to pt getting dialysis now
[2022-04-11 16:00] VITALS: BP 158/84
[2022-04-11] MEDS: IPRATROPIUM NEB FS 0.5 MG/2.5 ML AMPUL.NEB NEB PRN (16:35)
--- NOTE | 2022-04-11 17:09 | NUR ---
rn note pt had dialysis today. removed 2L.pt tolerating well
--- NOTE | 2022-04-11 19:28 | NUR ---
RN CLOSING NOTE PATIENT REMAINS IN ROOM. PT ALERT AND ORIENTED X 4. PT SITTING IN WHEELCHAIR AT THIS TIME. VERBALLY RESPONSIVE AND ABLE TO MAKE NEEDS KNOWN. PT HAS RIGHT UPPER ARM MIDLINE. IV INTACT, PATENT AND FLUSHING WELL WITH COVERED CAPS. ALL NEEDS ATTENDED. FREQUENT ROUNDS MADE. PROVIDED HYDRATION AND OFFERED SNACKS THROUGHOUT SHIFT. STAFF FROM [employer] CAME TO SPEAK WITH PT TO PROVIDE OPTIONS FOR ADDITIONAL MEALS. PT AGREED FOR CERTAIN FOOD OPTIONS. NO SIGNS OF PAIN OF DISCOMFORT AT THIS TIME. PT USES 2L OF NC;ROOM AIR AND ALTERNATES WITH SIMPLE FACE MASK, 02 AT 100% ALL SAFETY MEASURES IMPLEMENTED, BED IN LOWEST POSITION, LOCKED, SIDE RAILS U X2, CALL LIGHT WITHIN REACH. BED ALARM ON. PT USES WHEELCHAIR TO GET AROUND AND TO USE BATHROOM. ENDORSED TO STOPER RN FOR CONTUITY OF CARE
--- NOTE | 2022-04-11 19:30 | NUR ---
RN OPENING NOTE RECEIVED PT IN HIS WHEELCHAIR, SITTING COMFORTABLY, A/O X 4; ABLE TO VERBALIZE NEEDS. NO S/SX OF ACUTE RESPI DISTRESS NOTED AT THIS TIME. NO SOB; NO PAIN. CURRENTLY ON 2L OF 02 VIA NC; TOLERATING WELL SATURATING @ >95%. SR ON TITLE INSURANCE SALES REPRESENTATIVE, HR 80s. IV ACCESS ON BISMARK ML, SL. PATENT, INTACT AND FLUSHES WELL. R IJ HD CATH NOTED. ALL SAFETY MEASURES IN PLACE: BED IN LOWEST POSITION, LOCKED, SIDE RAILS UP, CALL LIGHT WITHIN REACH. WILL CONTINUE TO MONITOR.
[2022-04-11 20:00] VITALS: BP 160/108
[2022-04-12] VITALS: BP 149/88
[2022-04-12 04:00] VITALS: BP 148/88
[2022-04-12] MEDS: hydrALAZINE HCL IV 20 MG VIAL IV PRN (06:03)
--- NOTE | 2022-04-12 06:23 | NUR ---
RN NOTE NO SIGNIFICANT CHANGE T/O THE NIGHT. BP IS ELEVATED, SBP >160. HYDRALAZINE IV GIVEN ORDERED. ALL DUE MEDS GIVEN. NEEDS MET. TURNED AND REPOSITIONED. WILL ENDORSE TO AM SHIFT NURSE FOR JONATHON.
--- NOTE | 2022-04-12 07:10 | NUR ---
INFORMATION SYSTEMS PLANNER OPENING NOTES Received pt sleep in bed AOx4. No signs of pain or discomfort at this time. Pt is currently on 4L NC and tolerating it well. IV access on BISMARK midline patent and intact, RIJ PermCath for HD access. HOB elevated to 30-45 degrees. Bed at its lowest setting and locked. Call light within reach. Will continue to monitor.
[2022-04-12 07:27] LABS: BASOPHILS # (AUTO) 0.2 K/uL (0.0-0.2); BASOPHILS % (AUTO) 2.4 % (0.0-2.0); EOSINOPHILS % (AUTO) 12.1 % (0.0-6.0); HEMATOCRIT 30 % (39-51); HEMOGLOBIN 9.7 g/dL (13.5-17.5); LYMPHOCYTES % (AUTO) 13.6 % (20.0-44.0); MEAN CORPUSCULAR HGB CONC 32 g/dl (31.0-36.0); MEAN CORPUSCULAR VOLUME 87 fL (80-96); MONOCYTES # (AUTO) 0.9 K/uL (0.1-1.30); MONOCYTES % (AUTO) 12.3 % (2.0-12.0); NEUTROPHILS # (AUTO) 4.2 K/uL (1.8-8.9); NEUTROPHILS % (AUTO) 59.6 % (43.0-81.0); PLATELET COUNT (AUTO) 144 K/uL (150-450); RED BLOOD CELL COUNT(AUTO) 3.45 MIL/uL (4.5-6.0)
[2022-04-12 08:00] VITALS: BP 178/88
[2022-04-12 08:11] LABS: CALCIUM, SERUM 8.1 mg/dL (8.5-10.1); CREATININE 7.1 mg/dL (0.6-1.3); POTASSIUM 3.8 mmol/L (3.5-5.1)
[2022-04-12] MEDS: CALCIUM ACETATE 667 MG CAP/TAB PO SCH ×3 (08:19→17:05)
[2022-04-12] MEDS: PANTOPRAZOLE 40 MG TABLET.DR PO SCH (08:19)
[2022-04-12] MEDS: LABETALOL HCL (100MG) 100 MG TABLET PO SCH ×2 (08:20→20:54)
[2022-04-12] MEDS: hydrALAZINE HCL 25 MG TABLET PO SCH ×3 (08:20→17:06)
[2022-04-12] MEDS: AMLODIPINE BESYLATE 10 MG TABLET PO SCH (08:20)
[2022-04-12] MEDS: HEPARIN SODIUM, PORCINE 5000 UNITS/1 ML VIAL SQ SCH ×2 (08:22→20:54)
[2022-04-12] MEDS: FUROSEMIDE 100 MG/10 ML VIAL IV SCH ×2 (08:24→17:04)
--- NOTE | 2022-04-12 10:21 | NUR ---
follow up with dr. khalif french placement ,per pt. refusing it.
[2022-04-12 12:00] VITALS: BP 141/81
--- NOTE | 2022-04-12 13:07 | NUR ---
CONSUMER AFFAIRS SPECIALIST NOTES Pt request information on his BUN and creatinine. A copy of his lab results were given to him.
[2022-04-12 16:00] VITALS: BP 166/81
--- NOTE | 2022-04-12 16:30 | NUR ---
CRM FUNCTIONAL ANALYST NOTES Pt completed HD and tolerated it well. 2L of fluid taken out.
--- NOTE | 2022-04-12 18:30 | NUR ---
SPECIALIZED DEVELOPER CLOSING NOTES All due meds and tx given as ordered. Pt tolerated everything well. All needs attended to. Pt is currently on RA and tolerating it well. IV access on BISMARK midline patent and intact. HOB elevated to pts comfort. Siderails up at all times x2. Bed at its lowest setting. Call light within reach. Will endorse to oncoming nurse.
--- NOTE | 2022-04-12 19:30 | NUR ---
RN OPENING NOTE RECEIVED PT IN BED, ASLEEP. PT KNOWN TO BE A/O X 4; ABLE TO VERBALIZE NEEDS. NO S/SX OF ACUTE RESPI DISTRESS NOTED AT THIS TIME. NO SOB; NO PAIN. CURRENTLY ON RA; TOLERATING WELL, SATURATING @ >95%. SR ON FURNACE CONVERTER, HR 90s. IV ACCESS ON BISMARK ML, SL. PATENT, INTACT AND FLUSHES WELL. R IJ HD CATH NOTED. PT IS S/P HD. ALL SAFETY MEASURES IN PLACE: BED IN LOWEST POSITION, LOCKED, SIDE RAILS UP, CALL LIGHT WITHIN REACH. WILL CONTINUE TO MONITOR.
[2022-04-12 20:00] VITALS: BP 149/86
[2022-04-13] VITALS: BP 154/82
[2022-04-13 04:00] VITALS: BP 161/93
[2022-04-13] MEDS: hydrALAZINE HCL IV 20 MG VIAL IV PRN (06:31)
[2022-04-13 06:35] LABS: BASOPHILS # (AUTO) 0.1 K/uL (0.0-0.2); BASOPHILS % (AUTO) 1.2 % (0.0-2.0); EOSINOPHILS % (AUTO) 10.9 % (0.0-6.0); HEMATOCRIT 31 % (39-51); LYMPHOCYTES # (AUTO) 0.9 K/uL (0.8-4.8); LYMPHOCYTES % (AUTO) 12.8 % (20.0-44.0); MEAN CORPUSCULAR HGB CONC 33 g/dl (31.0-36.0); MEAN CORPUSCULAR VOLUME 87 fL (80-96); MONOCYTES # (AUTO) 0.8 K/uL (0.1-1.30); MONOCYTES % (AUTO) 11.3 % (2.0-12.0); NEUTROPHILS # (AUTO) 4.6 K/uL (1.8-8.9); NEUTROPHILS % (AUTO) 63.8 % (43.0-81.0); PLATELET COUNT (AUTO) 149 K/uL (150-450); RED BLOOD CELL COUNT(AUTO) 3.52 MIL/uL (4.5-6.0); WHITE BLOOD COUNT (AUTO) 7.2 K/uL (4.3-11.0)
[2022-04-13 07:00] LABS: CALCIUM, SERUM 8.2 mg/dL (8.5-10.1); CREATININE 6.2 mg/dL (0.6-1.3); POTASSIUM 3.8 mmol/L (3.5-5.1)
--- NOTE | 2022-04-13 07:10 | NUR ---
TRACKMOBILE OPERATOR OPENING NOTES Received pt sleep in bed AOx4. No signs of pain or discomfort at this time. Pt is currently on RA and tolerating it well. IV access on BISMARK midline patent and intact, RIJ PermCath for HD access. HOB elevated to 30-45 degrees. Bed at its lowest setting and locked. Call light within reach. Will continue to monitor.
[2022-04-13 08:00] VITALS: BP 153/80
[2022-04-13] MEDS: FUROSEMIDE 100 MG/10 ML VIAL IV SCH ×2 (08:46→17:25)
[2022-04-13] MEDS: LABETALOL HCL (100MG) 100 MG TABLET PO SCH ×2 (08:50→20:54)
[2022-04-13] MEDS: CALCIUM ACETATE 667 MG CAP/TAB PO SCH ×3 (08:51→17:24)
[2022-04-13] MEDS: AMLODIPINE BESYLATE 10 MG TABLET PO SCH (08:51)
[2022-04-13] MEDS: hydrALAZINE HCL 25 MG TABLET PO SCH ×3 (08:51→17:24)
[2022-04-13] MEDS: HEPARIN SODIUM, PORCINE 5000 UNITS/1 ML VIAL SQ SCH (08:55)
[2022-04-13] MEDS: PANTOPRAZOLE 40 MG TABLET.DR PO SCH (08:57)
--- NOTE | 2022-04-13 10:10 | NUR ---
COMPOUND FINISHER NOTES Pt brought to CT scan in wheelchair.
--- NOTE | 2022-04-13 10:38 | NUR ---
UI UX ENGINEER NOTES Pt returned from CT scan.
[2022-04-13 12:00] VITALS: BP 138/79
[2022-04-13 16:00] VITALS: BP 158/69
--- NOTE | 2022-04-13 16:13 | NUR ---
MUNITIONS WORKER NOTES CT scan of abdomen, chest, and pelvis relayed to Dr. Ya with no new orders at this time.
--- NOTE | 2022-04-13 18:25 | NUR ---
CORPORATE DEVELOPMENT ANALYST CLOSING NOTES All due meds and tx given as ordered. Pt tolerated everything well. All needs attended to. Pt is currently on RA and tolerating it well. IV access on BISMARK midline patent and intact. Currently on his wheelchair. Call light within reach. Will endorse to oncoming nurse.
--- NOTE | 2022-04-13 19:30 | NUR ---
LUMBER STRAIGHTENER OPENING NOTE RECEIVED PATIENT SITTING IN THE WHEEL CHAIR, ALERT AND ORIENTED X4. ABLE TO COMMUNICATE NEEDS WITH THE STAFFS. AFEBRILE AND NOT IN ANY FORM OF ACUTE DISTRESS. BREATHING EVEN AND NON LABORED. NO C/O PAIN OR DISCOMFORT AT THIS TIME. 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 ON TELE MONITORING WITH CURRENT READING OF SR. WITH PERMA CATH ON RIGHT IJ FOR DIALYSIS. AND BISMARK MID LINE-SL. SAFETY MEASURES IN PLACE. ADVISED TO USE THE CALL LIGHT WHEN IN NEED OF ASSISTANCE.
[2022-04-13 20:00] VITALS: BP 161/84
[2022-04-14] VITALS: BP 160/79
[2022-04-14 04:00] VITALS: BP 150/86
--- NOTE | 2022-04-14 06:30 | NUR ---
BOTTLE LABELER CLOSING NOTE PATIENT IN BED, ASLEEP BUT EASY TO AROUSE AND RESPONSIVE. ABLE TO COMMUNICATE NEEDS WITH THE STAFFS. AFEBRILE AND NOT IN ANY FORM OF ACUTE DISTRESS. BREATHING EVEN AND NON LABORED. NO C/O PAIN OR DISCOMFORT THROUGHOUT THE SHIFT. 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 ON TELE MONITORING WITH CURRENT READING OF SR 76 WITH BBB. WITH PERMA CATH ON RIGHT IJ FOR DIALYSIS AND BISMARK MID LINE-SL. MEDICATED ORDERED. ENCOURAGED TO TURN AND REPOSITION EVERY 2 HOURS AND TOLERATED TO PROMOTE PROPER CIRCULATION AND COMFORT. SAFETY MEASURES IN PLACE. ADVISED TO USE THE CALL LIGHT WHEN IN NEED OF ASSISTANCE. ALL NURSING NEEDS ATTENDED. ENDORSED TO INCOMING SHIFT FOR CONTINUITY OF CARE.
--- NOTE | 2022-04-14 07:15 | NUR ---
RN OPENING NOTE RECEIVED PT IN BED, AWAKE, PT A/O X 4; ABLE TO VERBALIZE NEEDS. NO S/SX OF ACUTE RESPI DISTRESS NOTED AT THIS TIME. NO SOB; NO PAIN. CURRENTLY ON RA; TOLERATING WELL, SATURATING @ >95%. SR ON BREAKFAST SUPERVISOR, HR 80. IV ACCESS ON BISMARK ML, SL. PATENT, INTACT AND FLUSHES WELL. PATIENT SCHEDULED FOR DIALYSIS LATER TODAY. ALL SAFETY MEASURES IN PLACE: BED IN LOWEST POSITION, LOCKED, SIDE RAILS UP, CALL LIGHT WITHIN REACH. WILL CONTINUE TO MONITOR.
[2022-04-14] MEDS: PANTOPRAZOLE 40 MG TABLET.DR PO SCH (07:53)
[2022-04-14] MEDS: CALCIUM ACETATE 667 MG CAP/TAB PO SCH ×3 (07:58→17:39)
[2022-04-14 08:00] VITALS: BP 159/74
[2022-04-14] MEDS: FUROSEMIDE 100 MG/10 ML VIAL IV SCH ×2 (08:33→16:04)
[2022-04-14] MEDS: LABETALOL HCL (100MG) 100 MG TABLET PO SCH ×2 (08:35→20:40)
[2022-04-14] MEDS: hydrALAZINE HCL 25 MG TABLET PO SCH ×3 (08:36→16:00)
[2022-04-14] MEDS: AMLODIPINE BESYLATE 10 MG TABLET PO SCH (08:37)
[2022-04-14 12:00] VITALS: BP 164/88
[2022-04-14 16:00] VITALS: BP 160/98
--- NOTE | 2022-04-14 18:30 | NUR ---
RN CLOSING NOTE PATIENT IS ALERT AND ORIENTED X 4, SITTING IN WHEELCHAIR, AFEBRILE AND NOT IN ANY FORM OF ACUTE DISTRESS, BREATHING EVEN AND UNLABORED, NO C/O PAIN OR DISCOMFORT THROUGHOUT THE SHIFT. ON EXTERNAL MODELING AGENT READING OF SR WITH BBB IN 77-80 BPM. WITH PERMA CATH ON RIGHT IJ FOR DIALYSIS AND BISMARK MID LINE-SL FLUSHES WELL. MEDICATED ORDERED. NO HEMODIALYSIS DONE TODAY. SAFETY MEASURES IN PLACE. ADVISED TO USE THE CALL LIGHT WHEN IN NEED OF ASSISTANCE. ALL NURSING NEEDS ATTENDED. ENDORSED TO INCOMING SHIFT FOR CONTINUITY OF CARE.
--- NOTE | 2022-04-14 19:45 | NUR ---
RN Opening Notes Received pt sitting in wheelchair at bedside. AOx4, able to make needs known. On RA and tolerating well. No SOB noted. No s/sx of respiratory distress noted. Tele monitor detects SR with BBB. IV access in BISMARK midline #18G and RIJ Permacath. IV is intact, patent, and flushing well. Safety precautions in place: bed in lowest, locked position, siderails upX2, and brakes on. Table and call light within reach. All needs met at this time.
[2022-04-14 20:00] VITALS: BP 158/84
[2022-04-15] VITALS: BP 148/82
[2022-04-15 04:00] VITALS: BP 147/69
--- NOTE | 2022-04-15 07:15 | NUR ---
RN Closing Notes Pt laying in bed, asleep, awakens to verbal stimuli. AOx4, able to make needs known. On RA and tolerating well. No SOB noted. No s/sx of respiratory distress noted. Tele monitor detects SR with BBB. IV access in BISMARK midline #18G and RIJ Permacath. IV is intact, patent, and flushing well. All orders carried out. All needs met. Pt kept clean and dry. Safety precautions in place: bed in lowest, locked position, siderails upX2, and brakes on. Table and call light within reach. Will endorse to oncoming shift for JONATHON.
--- NOTE | 2022-04-15 07:23 | NUR ---
RN Opening Notes Received pt sleeping in be. On RA and tolerating well. No SOB noted. No s/sx of respiratory distress noted. Tele monitor . IV access in BISMARK midline #18G and RIJ Permacath. IV is intact, patent, and flushing well. Safety precautions in place: bed in lowest, locked position, siderails upX2, and brakes on. Table and call light within reach.
[2022-04-15 08:00] VITALS: BP_SYST 158; BP_SYST 95; BP_DIAS 54; BP_DIAS 85
[2022-04-15] MEDS: FUROSEMIDE 100 MG/10 ML VIAL IV SCH ×2 (08:07→17:14)
[2022-04-15] MEDS: LABETALOL HCL (100MG) 100 MG TABLET PO SCH ×2 (08:08→20:45)
[2022-04-15] MEDS: PANTOPRAZOLE 40 MG TABLET.DR PO SCH (08:08)
[2022-04-15] MEDS: CALCIUM ACETATE 667 MG CAP/TAB PO SCH ×3 (08:08→17:13)
[2022-04-15] MEDS: AMLODIPINE BESYLATE 10 MG TABLET PO SCH (08:08)
[2022-04-15] MEDS: hydrALAZINE HCL 25 MG TABLET PO SCH ×3 (08:08→17:14)
[2022-04-15 16:00] VITALS: BP 145/80
--- NOTE | 2022-04-15 18:33 | NUR ---
SUPERVISING FLOORPERSON CLOSING NOTE PATIENT IN BED, ASLEEP BUT EASY TO AROUSE AND RESPONSIVE. ABLE TO COMMUNICATE NEEDS WITH THE STAFF. AFEBRILE AND NOT IN ANY FORM OF ACUTE DISTRESS. BREATHING EVEN AND NON LABORED. NO C/O PAIN OR DISCOMFORT THROUGHOUT THE SHIFT. 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 WITH HD ACCESS ON RIGHT IJ FOR DIALYSIS AND BISMARK MID LINE-SL. MEDICATED ORDERED. ENCOURAGED TO TURN AND REPOSITION EVERY 2 HOURS AND TOLERATED TO PROMOTE PROPER CIRCULATION AND COMFORT. SAFETY MEASURES IN PLACE. ADVISED TO USE THE CALL LIGHT WHEN IN NEED OF ASSISTANCE. ALL NURSING NEEDS ATTENDED. ENDORSED TO INCOMING SHIFT FOR CONTINUITY OF CARE.
--- NOTE | 2022-04-15 19:25 | NUR ---
noc rn opening note received patient in his wheelchair. a/ox4. no s/s of apparent distress in room air. denies any pain at this time. no fluids running at this time. RIJ line noted in place-- will re-inforced dressing. safety. re-oriented with the use of call light. will continue with patient's plan of care.
[2022-04-15 20:00] VITALS: BP 164/77
[2022-04-15 21:59] VITALS: BP 152/91
--- NOTE | 2022-04-15 22:00 | NUR ---
noc rn note- BP recheck BP went down to 152/91 after the scheduled labetalol 100mg hence no apresoline needed.
[2022-04-16 04:00] VITALS: BP 160/93
--- NOTE | 2022-04-16 04:47 | NUR ---
noc rn note BP 160/93 this morning. no PRN given d/t patient going to have dialysis today.
--- NOTE | 2022-04-16 06:50 | NUR ---
noc rn note bp 186/84 upon awakening. given Apresoline 10MG IV as ordered PRN
--- NOTE | 2022-04-16 06:50 | NUR ---
noc rn closing note patient in bed with eyes closed, easy to arouse. no s/s of apparent distress on room air. no c/o pain at this time. BISMARK midline on saline lock. RIJ HD CATH clean, dry intact. all needs attended. all scheduled medications administered. call light within reach. safety in place. will continue with patient's plan of care.
[2022-04-16] MEDS: hydrALAZINE HCL IV 20 MG VIAL IV PRN (07:10)
[2022-04-16] MEDS: CALCIUM ACETATE 667 MG CAP/TAB PO SCH ×3 (07:46→17:01)
[2022-04-16] MEDS: PANTOPRAZOLE 40 MG TABLET.DR PO SCH (07:46)
--- NOTE | 2022-04-16 07:57 | NUR ---
RN OPENING NOTE PATIENT AWAKE UP ON W/C, ABLE TO COMMUNICATE NEEDS WITH THE STAFF. AFEBRILE AND NOT IN ANY FORM OF ACUTE DISTRESS. BREATHING EVEN AND NON LABORED. NO C/O PAIN OR DISCOMFORT THROUGHOUT THE SHIFT. 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 WITH HD ACCESS ON RIGHT IJ FOR DIALYSIS NOTED DRESSING C/D/I. BISMARK MIDLINE NOTED PATENT AND INTACT FLUSHE WELL. PATIENT REQUESTING TO HAVE A SHOWER, WILL INFORMED MD. ENCOURAGED TO TURN AND REPOSITION EVERY 2 HOURS AND TOLERATED TO PROMOTE PROPER CIRCULATION AND COMFORT. SAFETY MEASURES IN PLACE. ADVISED TO USE THE CALL LIGHT WHEN IN NEED OF ASSISTANCE. PLAN OR CARE CONTINUE.
[2022-04-16] MEDS: FUROSEMIDE 100 MG/10 ML VIAL IV SCH ×2 (08:11→16:15)
[2022-04-16] MEDS: AMLODIPINE BESYLATE 10 MG TABLET PO SCH (08:12)
[2022-04-16] MEDS: LABETALOL HCL (100MG) 100 MG TABLET PO SCH ×2 (08:12→20:46)
[2022-04-16] MEDS: hydrALAZINE HCL 25 MG TABLET PO SCH ×3 (08:13→16:16)
--- NOTE | 2022-04-16 09:00 | NUR ---
PATIENT REQUESTED TO HAVE RIGHT LEG TO HAVE A CT SCAN, ASKED WHY HE SAID HE JUST WANTED TO DUE TO THAT LEG WAS NEVER CHECK BEFORE AFTER AMPUTATION, NO C/O OF PAIN ON THAT LEG, INFORMED DR. BENJAMIN NO NEW ORDER.
[2022-04-16 12:00] VITALS: BP 145/76
[2022-04-16 14:34] LABS: CALCIUM, SERUM 8.4 mg/dL (8.5-10.1); POTASSIUM 4.2 mmol/L (3.5-5.1)
--- NOTE | 2022-04-16 18:22 | NUR ---
RN CLOSING NOTE PATIENT AWAKE UP ON W/C, EATING DINNER, ABLE TO COMMUNICATE NEEDS WITH THE STAFF. AFEBRILE AND NOT IN ANY FORM OF ACUTE DISTRESS. BREATHING EVEN AND NON LABORED. NO C/O PAIN OR DISCOMFORT THROUGHOUT THE SHIFT. 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 WITH HD ACCESS ON RIGHT IJ FOR DIALYSIS NOTED DRESSING C/D/I. BISMARK MIDLINE NOTED PATENT AND INTACT AND FLUSHES WELL. ENCOURAGED TO TURN AND REPOSITION EVERY 2 HOURS AND TOLERATED TO PROMOTE PROPER CIRCULATION AND COMFORT. SAFETY MEASURES IN PLACE. ADVISED TO USE THE CALL LIGHT WHEN IN NEED OF ASSISTANCE. WILL ENDORSE TO NIGHT NURSE FOR JONATHON.
[2022-04-16 20:00] VITALS: BP 157/62
[2022-04-17] VITALS: BP 150/82
[2022-04-17 04:00] VITALS: BP 147/80
--- NOTE | 2022-04-17 07:56 | NUR ---
MS RN NOTE PATIENT AWAKE ,UP ON W/C,ALERT ORIENTED , EATING BREAKFAST, BREATHING EVEN AND NON LABORED. NO C/O PAIN WITH HD ACCESS ON RIGHT IJ FOR DIALYSIS NOTED DRESSING C/D/I. BISMARK MIDLINE NOTED PATENT AND INTACT AND FLUSHES WELL. . SAFETY MEASURES IN PLACE ,WILL CONT TO MONITOR
[2022-04-17 08:00] VITALS: BP 146/83
[2022-04-17] MEDS: AMLODIPINE BESYLATE 10 MG TABLET PO SCH (08:06)
[2022-04-17] MEDS: PANTOPRAZOLE 40 MG TABLET.DR PO SCH (08:08)
[2022-04-17] MEDS: LABETALOL HCL (100MG) 100 MG TABLET PO SCH ×2 (08:08→21:37)
[2022-04-17] MEDS: FUROSEMIDE 100 MG/10 ML VIAL IV SCH ×2 (08:09→16:49)
[2022-04-17] MEDS: hydrALAZINE HCL 25 MG TABLET PO SCH ×3 (08:09→16:49)
[2022-04-17] MEDS: CALCIUM ACETATE 667 MG CAP/TAB PO SCH ×3 (08:09→17:50)
--- NOTE | 2022-04-17 10:16 | NUR ---
MS RN NOTE PER DR KT WARREN TO HAVE LARGE PORTION OF DIET
--- NOTE | 2022-04-17 10:44 | NUR ---
GRANITE FABRICATOR NOTE MID LINE CANT FLUSHED WELL MPER DR MERAZ OK TO REPLACE ONE ,PATIENT IS HARD STICK
--- NOTE | 2022-04-17 12:34 | NUR ---
ms rn note having lunch , all needs attended up on chair
[2022-04-17 16:00] VITALS: BP 162/70
--- NOTE | 2022-04-17 18:40 | NUR ---
MS RN NOTE PATENT UP N CHAIR, HAVING DINNER , ABLE TO EAT SELF , ALL NEEDS ATTENDED, NO SOB NOTED ON RA AT THIS TIME, KEEP CLEAN DRY , SAFETY MEASURE IMPLEMENTED, LT UPPER ARM MID LINE IN PLACE AND FLUSHED WELL , CALL LIGHT WITHIN REACH , WILL CONT TO MONITOR CLOSELY
--- NOTE | 2022-04-17 19:55 | NUR ---
MS RN OPENING NOTE PATIENT ON WHEELCHAIR, A/O X4, NO SOB NOTED, BREATHING EVEN AND UNLABORED. 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 WITH HD ACCESS ON RIGHT IJ FOR DIALYSIS NOTED DRESSING C/D/I. DIANA MIDLINE NOTED PATENT AND INTACT FLUSHES WELL. SAFETY MEASURES IN PLACE: BED LOCKED AND IN LOWEST POSITION, CALL LIGHT WITHIN REACH, SIDE RAILS UP X3, WILL CONTINUE TO MONITOR.
[2022-04-17 20:00] VITALS: BP 171/80
[2022-04-18 04:00] VITALS: BP 142/67
--- NOTE | 2022-04-18 06:58 | NUR ---
MS RN CLOSING NOTE PATIENT IN BED, A/O X4, BREATHING EVEN AND UNLABORED. WITH HD ACCESS ON RIGHT IJ FOR DIALYSIS NOTED DRESSING C/D/I. DIANA MIDLINE NOTED PATENT AND INTACT FLUSHES WELL. 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 ALL DUE MEDS WERE GIVEN AND NEEDS ATTENDED. SAFETY MEASURES IN PLACE: BED LOCKED AND IN LOWEST POSITION, CALL LIGHT WITHIN REACH, SIDE RAILS UP X3, WILL ENDORSE TO ONCOMING NURSE FOR JONATHON.
--- NOTE | 2022-04-18 07:15 | NUR ---
RN OPENING NOTE PATIENT IS IN BED, A/O X4, NOTED WITH AMPUTATED L PARTIAL FOOT AND RIGHT BELOW THE KNEE AMPUTATION, USING WHEELCHAIR DURING THE DAY. BREATHING EVEN AND UNLABORED. WITH HD ACCESS ON RIGHT IJ FOR DIALYSIS NOTED DRESSING C/D/I. DIANA MIDLINE IV ACCESS INTACT FLUSHES WELL. SAFETY MEASURES IN PLACE: BED LOCKED AND IN LOWEST POSITION, CALL LIGHT WITHIN REACH, SIDE RAILS UP X3, WILL CONTINUE TO MONITOR.
[2022-04-18] MEDS: CALCIUM ACETATE 667 MG CAP/TAB PO SCH ×3 (07:42→17:56)
[2022-04-18] MEDS: PANTOPRAZOLE 40 MG TABLET.DR PO SCH (07:42)
[2022-04-18] MEDS: FUROSEMIDE 100 MG/10 ML VIAL IV SCH ×2 (10:03→17:56)
[2022-04-18] MEDS: AMLODIPINE BESYLATE 10 MG TABLET PO SCH (10:04)
[2022-04-18] MEDS: LABETALOL HCL (100MG) 100 MG TABLET PO SCH ×2 (10:05→22:10)
[2022-04-18] MEDS: hydrALAZINE HCL 25 MG TABLET PO SCH ×3 (10:06→17:57)
--- NOTE | 2022-04-18 10:07 | NUR ---
PATIENT HAD HEMODIALYSIS SESSION DONE FROM 0800 TO 1000, HD OUTPUT 2.7L, ROUTINE MEDICATION ADMINISTERED AFTER HD COMPLETED AND LAST SET OF VITALS DOCUMENTED.
[2022-04-18 12:00] VITALS: BP 157/84
--- NOTE | 2022-04-18 20:12 | NUR ---
RN CLOSING NOTE PATIENT IN BED, A/O X4, BREATHING EVEN AND UNLABORED. WITH HD ACCESS ON RIGHT IJ FOR DIALYSIS NOTED DRESSING C/D/I. DIANA MIDLINE NOTED PATENT AND INTACT FLUSHES WELL. AMPUTATED L PARTIAL FOOT AND RIGHT BELOW THE KNEE AMPUTATION. ALL DUE MEDS WERE GIVEN AND NEEDS ATTENDED. SAFETY MEASURES IN PLACE: BED LOCKED AND IN LOWEST POSITION, CALL LIGHT WITHIN REACH, SIDE RAILS UP X3, WILL ENDORSE TO ONCOMING NURSE FOR JONATHON.
[2022-04-18 22:56] VITALS: BP 140/70
[2022-04-19 05:47] VITALS: BP 138/72
[2022-04-19] MEDS: PANTOPRAZOLE 40 MG TABLET.DR PO SCH (06:23)
--- NOTE | 2022-04-19 07:30 | NUR ---
HOUSING QUALITY STANDARD INSPECTOR OPENING NOTES Received pt awake in bed AOx4. No complaints of pain or discomfort at this time. Pt is currently on RA and tolerating it well. IV access on BISMARK midline patent and intact, RIJ PermCath for HD access. HOB elevated to 30-45 degrees. Bed at its lowest setting and locked. Call light within reach. Will continue to monitor.
[2022-04-19] MEDS: hydrALAZINE HCL 25 MG TABLET PO SCH ×2 (08:36→13:14)
[2022-04-19] MEDS: LABETALOL HCL (100MG) 100 MG TABLET PO SCH (08:37)
[2022-04-19] MEDS: CALCIUM ACETATE 667 MG CAP/TAB PO SCH ×2 (08:37→13:14)
[2022-04-19] MEDS: AMLODIPINE BESYLATE 10 MG TABLET PO SCH (08:37)
[2022-04-19] MEDS: FUROSEMIDE 100 MG/10 ML VIAL IV SCH (08:39)
[2022-04-19] MEDS ORDERED: LIDOCAINE 5% OINT 35.44 GM TUBE TP PRN (09:30)
[2022-04-19] MEDS ORDERED: HYDR-4076 PO (10:06)
[2022-04-19] MEDS ORDERED: CALC667C6 PO (10:06)
--- NOTE | 2022-04-19 11:15 | NUR ---
INSULATION WORKER NOTES Dr. Loyola clear pt for discharge, When the pt got informed of discharge pt refused and stated "What about the fluids in my lungs and my dialysis." instructional design manager Gregory notified and notified.
--- NOTE | 2022-04-19 11:16 | NUR ---
BUILDING EQUIPMENT INSPECTOR NOTES STAT CXR ordered per Dr. Loyola.
--- NOTE | 2022-04-19 11:46 | NUR ---
OIL TANK CAR CLEANER NOTES RIJ permacath removed by JAKY Patel. Pt tolerated removal well. No bleeding noted at this time.
[2022-04-19 13:14] VITALS: BP 152/79
--- NOTE | 2022-04-19 14:42 | NUR ---
SOCIOLOGY RESEARCH ASSISTANT NOTES Pt going to be discharged to [facility]. Report given to JAKY Jaimes. Pt made aware.
--- NOTE | 2022-04-19 16:00 | NUR ---
LNV NOTES Pt picked up by Mariajose Moreno. IV access taken out. Belongings list signed and belongings taken with pt. Paperwork given to EMT. Transferred from wheelchair to gurney safely. Pt refused to take pictures of legs.
== END 2022-04-19 17:06 | DRG 469 ==
LOC: ER 20:34 → TELE1 23:43 → TELE-TD 04-06 00:30 → TELE1 04-07 16:29 → MEDSG1 04-15 10:00
PROVIDERS: ADMIT Nurse Practitioner Acute Care; ATTEND Internal Medicine
PROC: 05HM33Z Insertion of Infusion Device into Right Internal Jugular Vein, Percutaneous Approach (ICD-10-PCS; principal; 2022-04-06)
PROC: B543ZZA Ultrasonography of Right Jugular Veins, Guidance (ICD-10-PCS; 2022-04-06)
PROC: 5A1D70Z Performance of Urinary Filtration, Intermittent, Less than 6 Hours Per Day (ICD-10-PCS; 2022-04-06)
PROC: 05HB33Z Insertion of Infusion Device into Right Basilic Vein, Percutaneous Approach (ICD-10-PCS; 2022-04-07)
PROC: 05HF33Z Insertion of Infusion Device into Left Cephalic Vein, Percutaneous Approach (ICD-10-PCS; 2022-04-17)
DX: N17.9 Acute kidney failure, unspecified (principal); J96.01 Acute respiratory failure with hypoxia; I50.33 Acute on chronic diastolic (congestive) heart failure; D68.59 Other primary thrombophilia; D63.8 Anemia in other chronic diseases classified elsewhere; E83.39 Other disorders of phosphorus metabolism; J90 Pleural effusion, not elsewhere classified; E11.22 Type 2 diabetes mellitus with diabetic chronic kidney disease; N18.5 Chronic kidney disease, stage 5; I13.0 Hypertensive heart and chronic kidney disease with heart failure and stage 1 through stage 4 chronic kidney disease, or unspecified chronic kidney disease; G47.33 Obstructive sleep apnea (adult) (pediatric); E87.5 Hyperkalemia; Z20.822 Contact with and (suspected) exposure to COVID-19; K21.9 Gastro-esophageal reflux disease without esophagitis; E11.42 Type 2 diabetes mellitus with diabetic polyneuropathy; E11.51 Type 2 diabetes mellitus with diabetic peripheral angiopathy without gangrene; Z89.511 Acquired absence of right leg below knee; Z89.432 Acquired absence of left foot; F89 Unspecified disorder of psychological development; E78.5 Hyperlipidemia, unspecified; E66.01 Morbid (severe) obesity due to excess calories; Z79.899 Other long term (current) drug therapy; M89.8X9 Other specified disorders of bone, unspecified site; Z68.35 Body mass index [BMI] 35.0-35.9, adult; Z74.09 Other reduced mobility; J98.11 Atelectasis
CPT/HCPCS: 36415; 36600; 71045-TC; 71250-TC; 73630-TC; 76770-TC; 80048-TC; 80076-TC; 82803-TC; 82962-TC; 83735-TC; 83880; 84100-TC; 84484-TC; 85025-TC; 85378-TC; 85730-TC; 86706; 87081-TC; 87340; 90935-TC; 93307-TC; 93926-TC; 94799-TC; 97110-TC; 97112-TC; 97530-TC; A6253; C9803; G0378; J0360; J1644; J1815; J1940; J2060; J3490; J7030; J7070